=== PATIENT | female | born 1985 | race Caucasian/White ===

== ENCOUNTER 2019-07-28 15:28 | Outpatient (CLI) | payer BC ==
--- NOTE | 2019-07-28 15:42 | RAD ---
EXAM: Two views chest PROVIDED CLINICAL HISTORY: Acute bronchitis. Cough since early June. COMPARISON: None FINDINGS: Cardiac silhouette and pulmonary vasculature are within normal limits. The lungs are clear. The osse ous structures have a normal appearance. IMPRESSION: No acute cardiopulmonary process.
== END 2019-07-28 15:29 | disposition home or self-care (01) ==
LOC: BICRAD 15:28
PROVIDERS: ATTEND Family Medicine
DX: J20.9 Acute bronchitis, unspecified (principal)
CPT/HCPCS: 71046